=== PATIENT | female | born 1990 | race Caucasian/White ===

== ENCOUNTER 2019-10-24 19:12 | Emergency (ER) | payer MEDICAID ==
[~2019-10-24] VITALS: Ht 160 cm; Wt 107.0 kg
[2019-10-24 19:30] VITALS: BP 123/88
--- NOTE | 2019-10-24 21:37 | NUR ---
PT AMBULATED TO CHAIR C.
[2019-10-24 21:54] VITALS: BP 123/88
--- NOTE | 2019-10-24 21:54 | NUR ---
Patient discharged with v/s stable. Written and verbal after care instructions given and explained. Patient alert, oriented and verbalized understanding of instructions. Ambulatory with steady gait. All questions addressed prior to discharge. ID band removed. Patient advised to follow up with PMD. Rx of AMOXIILLIN WAS given. Patient educated on indication of medication including possible reaction and side effects. Opportunity to ask questions provided and answered. DR. YATES ASSESSED AND D/C PT
== END 2019-10-24 21:54 | disposition home or self-care (01) ==
LOC: MED 19:12
DX: O99.511 Diseases of the respiratory system complicating pregnancy, first trimester (principal); O21.9 Vomiting of pregnancy, unspecified; J20.9 Acute bronchitis, unspecified; R51 Headache; Z3A.10 10 weeks gestation of pregnancy
CPT/HCPCS: 99283